=== PATIENT | female | born 1995 | race Caucasian/White ===

== ENCOUNTER 2022-02-25 19:06 | Emergency (ER) | payer MEDICAID ==
[~2022-02-25] VITALS: Ht 160 cm; Wt 99.9 kg
[2022-02-25] MEDS ORDERED: KETOROLAC 60MG/2ML VIAL IM ONE (20:15)
[2022-02-25] MEDS ORDERED: LORAZEPAM 0.5MG TABLET PO ONE (20:15)
[2022-02-25 20:25] VITALS: BP 151/107
[2022-02-25] MEDS ORDERED: METH-653 MT (20:40)
[2022-02-25] MEDS ORDERED: IBUP-2029 MT (20:40)
== END 2022-02-25 20:47 | disposition home or self-care (01) ==
LOC: ER 19:06
DX: M54.50 Low back pain, unspecified (principal); G89.29 Other chronic pain
CPT/HCPCS: 81025; 96372; 99283; J1885

== ENCOUNTER 2024-03-15 14:41 | Emergency (ER) | payer MEDICAID, OTHER ==
[~2024-03-15] VITALS: Ht 157.5 cm; Wt 105.0 kg
[~2024-03-15 14:41] MED LIST: IBUP-2029 MT; METH-653 MT
[2024-03-15 14:49] VITALS: O2SAT 99
[2024-03-15 18:18] LABS: CLARITY URINE CLOUDY (CLEAR); COLOR URINE DARK YELLOW (YELLOW); GLUCOSE URINE NEGATIVE (NEGATIVE); KETONES URINE 3+ (NEGATIVE); LEUKOCYTE ESTERASE URINE 1+ (NEGATIVE); NITRITE URINE NEGATIVE (NEGATIVE); OCCULT BLOOD URINE 1+ (NEGATIVE); PROTEIN URINE 1+ (NEGATIVE)
[2024-03-15 18:26] LABS: BASOPHILS % 0.3 % (0.0-2.0); EOSINOPHILS % 0.2 % (0.0-5.0); HEMATOCRIT. 43.5 % (36.0-48.0); HEMOGLOBIN. 14.9 g/dL (12.0-16.0); LYMPHOCYTES % 29.3 % (20.0-50.0); MEAN CORPUSCULAR HEMOGLOBIN 30.8 pg (28.0-32.0); MEAN CORPUSCULAR HGB CONC 34.2 g/dL (31.0-37.0); MEAN CORPUSCULAR VOLUME 90.1 fL (81.0-99.0); MEAN PLATELET VOLUME 9.5 fl (7.4-10.4); MONOCYTES % 5.5 % (2.0-8.0); NEUTROPHILS % 64.7 % (40.0-76.0); PLATELET 226 x1000/uL (130-400); RED BLOOD CELL COUNT 4.83 mill/uL (4.2-5.4)
[2024-03-15 18:33] LABS: BACTERIA URINE TRACE; SQUAMOUS EPITHELIAL CELL URINE 1+ /lpf (RARE/1+)
[2024-03-15] MEDS: SODIUM CHLORIDE 0.9% 1,000 ML IV ONE (18:34)
[2024-03-15] MEDS: KETOROLAC 30MG/ML VIAL IV STA (18:37)
[2024-03-15] MEDS: ONDANSETRON HCL 4MG/2ML INJ IV STA (18:37)
[2024-03-15 18:40] LABS: CHLORIDE 104 mEq/L (98-107); POTASSIUM 3.7 mEq/L (3.5-5.1); SODIUM 143 mEq/L (136-145)
[2024-03-15 18:41] LABS: CARBON DIOXIDE 31 mEq/L (21-32)
[2024-03-15 18:46] LABS: CREATININE 0.9 mg/dL (0.6-1.0)
[2024-03-15 18:47] LABS: GLUCOSE 85 mg/dL (70-105); UREA NITROGEN BLOOD 11 mg/dL (9-23)
[2024-03-15 18:48] LABS: ALANINE AMINOTRANSFERASE 14 IU/L (10-49); ALBUMIN 5.1 g/dL (3.2-4.8); ASPARTATE AMINOTRANSFERASE 15 IU/L (<34); HCG SCREEN NEGATIVE
[2024-03-15 18:49] LABS: BILIRUBIN DIRECT 0.3 mg/dL (<=3.0); BILIRUBIN TOTAL 1.3 mg/dL (0.1-1.0); PROTEIN TOTAL 8.2 g/dL (6.0-8.3)
[2024-03-15] MEDS ORDERED: ONDA-239 PO (21:07)
[2024-03-15 21:30] VITALS: BP 122/86; PULSE 65; RESP 17; TEMP 36.66960; O2SAT 100
== END 2024-03-15 21:30 | disposition home or self-care (01) ==
LOC: ER 14:52
DX: R11.2 Nausea with vomiting, unspecified (principal)
CPT/HCPCS: 80076; 80048; 81003; 81025; 84703; 83690; 85025; 36415; 96374; 96375; 99284; J1885; J2405; J7030; Z7610 ×2

== ENCOUNTER 2024-05-12 14:45 | Emergency (ER) | payer MEDICAID ==
[~2024-05-12] VITALS: Ht 157.5 cm; Wt 98.0 kg
[~2024-05-12 14:45] MED LIST changes: +ONDA-239 PO
[2024-05-12 14:47] VITALS: BP 116/74; PULSE 115; O2SAT 100
[2024-05-12 16:06] LABS: BASOPHILS % 0.3 % (0.0-2.0); HEMATOCRIT. 38.2 % (36.0-48.0); HEMOGLOBIN. 12.7 g/dL (12.0-16.0); LYMPHOCYTES % 10.3 % (20.0-50.0); MEAN CORPUSCULAR HEMOGLOBIN 30.1 pg (28.0-32.0); MEAN CORPUSCULAR HGB CONC 33.2 g/dL (31.0-37.0); MEAN CORPUSCULAR VOLUME 90.8 fL (81.0-99.0); MEAN PLATELET VOLUME 9.4 fl (7.4-10.4); MONOCYTES % 8.2 % (2.0-8.0); NEUTROPHILS % 81.2 % (40.0-76.0); PLATELET 205 x1000/uL (130-400); RED CELL DISTRIBUTION WIDTH 13.5 % (11.6-14.6); WHITE BLOOD COUNT 14.1 x1000/uL (4.5-11.0)
[2024-05-12 16:15] LABS: CHLORIDE 102 mEq/L (98-107); POTASSIUM 3.3 mEq/L (3.5-5.1); SODIUM 136 mEq/L (136-145)
[2024-05-12 16:16] LABS: CARBON DIOXIDE 21 mEq/L (21-32)
[2024-05-12 16:17] LABS: CALCIUM 9.6 mg/dL (8.7-10.4)
[2024-05-12 16:21] LABS: CREATININE 1.1 mg/dL (0.6-1.0); GLUCOSE 128 mg/dL (70-105)
[2024-05-12 16:22] LABS: HCG SCREEN NEGATIVE; UREA NITROGEN BLOOD 9 mg/dL (9-23)
[2024-05-12 16:23] LABS: ALANINE AMINOTRANSFERASE 14 IU/L (10-49); ALBUMIN 4.6 g/dL (3.2-4.8); ASPARTATE AMINOTRANSFERASE 20 IU/L (<34)
[2024-05-12 16:24] LABS: BILIRUBIN DIRECT 0.5 mg/dL (<=3.0); BILIRUBIN TOTAL 1.7 mg/dL (0.1-1.0); PROTEIN TOTAL 7.5 g/dL (6.0-8.3)
[2024-05-12 17:02] VITALS: TEMP 100
[2024-05-12] MEDS: SODIUM CHLORIDE 0.9% 1,000 ML IV ONE (17:02)
[2024-05-12] MEDS: ACETAMINOPHEN 325MG TABLET PO STA (17:02)
== END 2024-05-12 21:40 | disposition left against medical advice (07) ==
LOC: ER 14:45
DX: R50.9 Fever, unspecified (principal); M79.10 Myalgia, unspecified site; R05.9 Cough, unspecified
CPT/HCPCS: 80076; 80048; 80320; 84703; 83690; 85025; 36415; 71045; 96360; 99284; J7030; Z7610; G0480

== ENCOUNTER 2024-11-08 02:47 | Emergency (ER) | payer MEDICAID, OTHER ==
[~2024-11-08] VITALS: Ht 160 cm; Wt 64.0 kg
[2024-11-08 02:51] VITALS: TEMP 37.2; O2SAT 96
[2024-11-08 03:59] LABS: BASOPHILS % 0.5 % (0.0-2.0); EOSINOPHILS % 0.5 % (0.0-5.0); HEMATOCRIT. 41.5 % (36.0-48.0); HEMOGLOBIN. 13.8 g/dL (12.0-16.0); LYMPHOCYTES % 20.1 % (20.0-50.0); MEAN CORPUSCULAR HEMOGLOBIN 29.5 pg (28.0-32.0); MEAN CORPUSCULAR HGB CONC 33.3 g/dL (31.0-37.0); MEAN CORPUSCULAR VOLUME 88.8 fL (81.0-99.0); MEAN PLATELET VOLUME 9.6 fl (7.4-10.4); MONOCYTES % 7.9 % (2.0-8.0); PLATELET 158 x1000/uL (130-400); RED BLOOD CELL COUNT 4.68 mill/uL (4.2-5.4); RED CELL DISTRIBUTION WIDTH 13.7 % (11.6-14.6); WHITE BLOOD COUNT 6.6 x1000/uL (4.5-11.0)
[2024-11-08 04:07] LABS: CHLORIDE 107 mEq/L (98-107); POTASSIUM 3.3 mEq/L (3.5-5.1); SODIUM 143 mEq/L (136-145)
[2024-11-08 04:08] LABS: CALCIUM 9.4 mg/dL (8.7-10.4); CARBON DIOXIDE 27 mEq/L (21-32)
[2024-11-08 04:13] LABS: CREATININE 0.9 mg/dL (0.6-1.0); GLUCOSE 120 mg/dL (70-105); UREA NITROGEN BLOOD 9 mg/dL (9-23)
[2024-11-08 04:52] LABS: HCG SCREEN NEGATIVE
[2024-11-08 05:09] VITALS: TEMP 98.9
[2024-11-08] MEDS: ACETAMINOPHEN 325MG TABLET PO ONE (05:09)
[2024-11-08] MEDS ORDERED: TOPUD PO (06:27)
[2024-11-08 06:35] VITALS: BP 117/67; PULSE 76; RESP 20; O2SAT 96
[2024-11-08] MEDS: IBUPROFEN 400MG TABLET PO ONE (06:35)
== END 2024-11-08 06:35 | disposition home or self-care (01) ==
LOC: ER 03:15
DX: K80.20 Calculus of gallbladder without cholecystitis without obstruction (principal); F10.90 Alcohol use, unspecified, uncomplicated; Z98.84 Bariatric surgery status; Z79.899 Other long term (current) drug therapy; Y90.9 Presence of alcohol in blood, level not specified
CPT/HCPCS: 36415; 76705; 80048; 84703; 85025; 99284

== ENCOUNTER 2025-01-26 03:50 | Emergency (ER) | payer OTHER ==
[~2025-01-26] VITALS: Ht 157.5 cm; Wt 69.0 kg
[~2025-01-26 03:50] MED LIST changes: +IBUP-1455 MT; -IBUP-2029 MT; +TOPUD PO
[2025-01-26 04:00] VITALS: O2SAT 100
[2025-01-26 04:34] VITALS: TEMP 36.6
[2025-01-26 04:34] LABS: BASOPHILS % 0.5 % (0.0-2.0); EOSINOPHILS % 1.1 % (0.0-5.0); HEMATOCRIT. 39.6 % (36.0-48.0); HEMOGLOBIN. 13.4 g/dL (12.0-16.0); LYMPHOCYTES % 42.2 % (20.0-50.0); MEAN PLATELET VOLUME 10.2 fl (7.4-10.4); MONOCYTES % 6.8 % (2.0-8.0); NEUTROPHILS % 49.4 % (40.0-76.0); PLATELET 191 x1000/uL (130-400); RED BLOOD CELL COUNT 4.42 mill/uL (4.2-5.4); RED CELL DISTRIBUTION WIDTH 13.2 % (11.6-14.6)
[2025-01-26] MEDS: SODIUM CHLORIDE 0.9% 1,000 ML IV ONE (04:37)
[2025-01-26] MEDS: MORPHINE SULFATE 4 MG/ML INJ (FOR IV/IM USE) IV NR (04:37)
[2025-01-26] MEDS: ONDANSETRON HCL 4MG/2ML INJ IV NR (04:37)
[2025-01-26 04:52] LABS: CREATININE 0.9 mg/dL (0.6-1.0); UREA NITROGEN BLOOD 17 mg/dL (9-23)
[2025-01-26 04:53] LABS: ETHANOL BLOOD < 10 mg/dL (<10)
[2025-01-26 04:54] LABS: ASPARTATE AMINOTRANSFERASE 140 IU/L (<34); BILIRUBIN DIRECT 0.3 mg/dL (<=3.0)
[2025-01-26 04:55] LABS: BILIRUBIN TOTAL 0.9 mg/dL (0.1-1.0); PROTEIN TOTAL 7.3 g/dL (6.0-8.3)
[2025-01-26 04:59] LABS: HCG SCREEN NEGATIVE
[2025-01-26 07:30] VITALS: BP 107/65; PULSE 66; RESP 18; O2SAT 98
== END 2025-01-26 08:10 | disposition home or self-care (01) ==
LOC: ER 03:50 → CMPBEDREQ 19:14
DX: K80.20 Calculus of gallbladder without cholecystitis without obstruction (principal); Z79.899 Other long term (current) drug therapy
CPT/HCPCS: 80076; 80048; 80320; 84703; 83690; 85025; 36415; 76705; 96361; 96374; 96375; 99285; J2405; J2270; G0480